=== PATIENT | female | born 1990 | race Hispanic/Latino ===

== ENCOUNTER 2020-12-16 07:49 | Emergency (ER) | payer SELFPAY ==
[~2020-12-16] VITALS: Ht 162.6 cm; Wt 72.6 kg
[2020-12-16] MEDS ORDERED: IBUPROFEN 600 MG TAB PO STA (08:05)
[2020-12-16] MEDS ORDERED: DEXAMETHASONE SOD PHOS 10 MG/1 ML VIAL IM STA (08:05)
[2020-12-16] MEDS ORDERED: AZITHROMYCIN250 MG PO (08:11)
[2020-12-16] MEDS ORDERED: VENTOLIN HFA18 GM INH (08:11)
[2020-12-16] MEDS ORDERED: PREDNISONE20 MG PO (08:11)
== END 2020-12-16 08:15 | disposition home or self-care (01) ==
LOC: ER 08:08
DX: R53.81 Other malaise (principal); J06.9 Acute upper respiratory infection, unspecified; Z20.822 Contact with and (suspected) exposure to COVID-19; E03.9 Hypothyroidism, unspecified
CPT/HCPCS: 99282; J1100